=== PATIENT | female | born 1960 | race Caucasian/White ===

== ENCOUNTER → 2016-11-23 | Outpatient (CLI) | payer BC ==
[~2016-11-23] MED LIST: CEFD300C PO
[2016-11-23 16:08] VITALS: BP 104/65
--- NOTE | 2016-11-23 16:08 | Urgent Care T Sheet Gen (E) ---
Intake General Temperature (Fahrenheit): 99.1 Pulse: 82 Blood Pressure Systolic: 104 Blood Pressure Diastolic: 65 Respirations: 20 SPO2: 100 Description of Symptoms Patient presents with illness x 1 month. Notes nasal congestion, chest congestion and cough. No fever. [place] worn down. Been taking Mucinex without relief and Sudafed without relief. Initially thought it was a cold however figured that would resolve by now. Respiratory Constitutional Symptoms: No Fever, Malaise EENTM: Nose Congestion Respiratory: Cough Short of breathNo Wheezing Cardiovascular: No symptoms reported All Other Systems Reviewed Remaining Systems: All other systems reviewed with negative findings Physical Exam Physical Exam General Appearance: WD/WN No apparent distress Eyes, Ears, Nose, Throat Ex: TMs normal Pharynx normal Other (red, swollen nasal turbinates with thick drainage.) Neck Exam: SuppleNo Lymphadenopathy Respiratory Exam: Rhonchi (deep productive cough during exam.)No Wheezes Cardiovascular Exam: Regular rate, rhythm Departure Urgent Care Impression Impression: Primary Impression: Bronchitis Departure Disposition: 01 HOME OR SELF-CARE Condition: Stable Additional Instructions: I started the patient on Cefdinir for treatment Encouraged her to add Mucinex for congestion. May DC the Sudafed Rest. Fluids Return as needed or f/u with PCP Patient understands DC instructions. All questions were answered. Scripts Cefdinir 300 Mg [id number] Mg PO BID #14 CAP Prov:CARL ZULETA 11/23/16 End of report . CARL ZULETA Nov 23, 2016 16:08
== END ==
LOC: MHUC 15:47
PROVIDERS: ATTEND Physician Assistant
DX: J40 Bronchitis, not specified as acute or chronic (principal)
CPT/HCPCS: 99203